=== PATIENT | female | born 1970 | race Caucasian/White ===

== ENCOUNTER 2018-12-20 06:09 | Day surgery (SDC) | payer OTHER, SELFPAY ==
--- NOTE | 2018-12-20 06:16 | HPE_ITS ---
Date of service: 12/20/18 Time of Service: 06:16 Assessment and Plan (1) Segmental colitis: Current visit: No Status: Acute P\\ Colonoscopy under sedation Risks, benefits and complications have been reviewed. Complications include but are not limited to bleeding, pain, perforation, missed small lesion/polyp, sore throat, aspiration and adverse reaction to the medications. Questions were entertained and answered to their satisfaction and they wished to proceed. No guarantees were given or implied. Qualifiers: Digestive disease complication type: without complication Qualified Code(s): K50.10 - Crohn's disease of large intestine without complications History of Present Illness Narrative: Mrs. Jasso is a pleasant 47-year-old female who starting in November developed left lower quadrant suprapubic abdominal pain. She was seen in the emergency department probably where she had a CT scan this showed a segment of sigmoid colon which was thickened and inflamed. It may not see any diverticuli so called that the diverticulitis versus segmental colitis. She was treated with antibiotics for quite a few weeks. She states that the antibiotics helped and the pain became dull. She continued to have flares and recently had another flare about 3 weeks ago. She has been on Augmentin since then. Again her pain is almost gone but she still feels some pressure especially in the suprapubic area. She did not have any other CAT scans since the one in November. She has never had a colonoscopy peer before. She does not develop diarrhea or constipation either prior or during these flares of pain. She tells me that she goes to the bathroom regularly once or twice a day they are. The bowel movements are soft. She denies any melena or hematochezia. She denies any weight loss. She feels that these flares are consistent with times of increased stress, decreased exercise, worse diet and less water intake. She does not have a family history of inflammatory bowel disease that she is aware of. She has never had a colonoscopy before. No changes in her health since I last saw her. [facility] Medical History Segmental colitis (Acute 12/25/17) Herpes (Acute 06/08/17) Edema (Acute 06/08/17) Diverticulitis (Acute 12/25/17) DUB (dysfunctional uterine bleeding) (Acute 06/08/17) Basal cell carcinoma of right shoulder (Acute) Surgical History section Dilation and curettage Excision, Lesion Hysterectomy w/ovary sparing Right shoulder FX repair Family History Mother Alcohol abuse FAMILY HISTORY Diabetes Alcohol abuse Essential hypertension Neoplasm Father Alcohol abuse Social History household members: spouse housing: house current occupational status: employed 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
[2018-12-20 06:19] VITALS: BP 113/42; PULSE 77; RESP 18; TEMP 36.2; O2SAT 100
--- NOTE | 2018-12-20 06:19 | W.COLOREPORT ---
Date of service: 12/20/18 Time of Service: : Colonoscopy Report Date of procedure: 12/20/18 Pre-op diagnosis general: Segmental colitis Post-op diagnosis procedure note: other (sigmoid diverticulosis) Procedure: Colonoscopy Surgeon: Natalie Menard Anesthesia proc note operative: MAC (Calin Gomes, WEB MARKETING ASSISTANT/ ASA 2) Estimated blood loss (mL): 0 Pathology: none sent Complications: None Disposition: same day Indications: Mrs. Jasso is a pleasant 48 year old with several episodes of LLQ pain. CT scan showed segmental colitis. No diverticula were noted. Risks, benefits and complications have been reviewed. Complications include but are not limited to bleeding, pain, perforation, missed small lesion/polyp, sore throat, aspiration and adverse reaction to the medications. Questions were entertained and answered to their satisfaction and they wished to proceed. No guarantees were given or implied. Prep: Miralax/Dulcolax Procedure Start Time: : Procedure End Time: :51 Retraction Time: 13 minutes Findings: mild sigmoid diverticulosis Procedure Description: After informed consent was obtained the patient was taken to the procedure room and placed in a left decubitous position. Monitors were applied and a time out was done. The patients name, date of , procedure, allergies to medications and metal in their body was reviewed. The patient was then sedated. Once sedated and comfortable a rectal exam was done. External exam was normal. Internal exam revealed a normal sphincter tone and no palpable masses. The scope was then introduced and retro-flexed. no internal hemorrhoids were identified. The scope was then advanced to the cecum without difficulty. The TI and appendiceal orifice were identified. The prep was good. The scope was then slowly retracted over 13 minutes back into the rectum. There were no polyps. There was mild diverticulosis of the sigmoid colon. The scope was removed and the patient was woken up and taken back to Same day surgery in stable condition. The patient tolerated the procedure well and there were no immediate complications. Follow up: The patient should follow up in 10 years unless they develop changes in bowel habits or other new gastrointestinal complaints.
--- NOTE | 2018-12-20 06:21 | W.PM.DSUDISC ---
Discharge Plan Disposition Patient Disposition: HOME Condition: Good Discharge Details Reason For Visit: Diverticulosis Attending Provider: Natalie Menard Primary Care Provider: Alaina Joseph Home Meds and New Rx's Prescriptions: Continued acyclovir 400 MG tablet 400 mg PO BID PRNQty: 60 RF: 12 Discontinued polyethylene glycol 3350 17 gram/dose Powder 3,350 g PO RF: 0 bisacodyl 5 mg Tablet 10 mg PO RF: 0 Discharge Instructions Instructions: Colonoscopy (DC), Diverticulosis (DC) Additional Instructions: Findings: mild diverticulosis Follow up: 10 years Please call if you develop: fevers >101.5 Nausea or Vomiting Abdominal pain that is not transient DAY SURGERY UNIT POST COLONOSCOPY INSTRUCTIONS 1. Because there will be medication in your system for the next 24 hours, you may feel a little sleepy. Your coordination will be affected. Therefore: a. Do not drive or operate dangerous equipment for 24 hours. b. Do not drink alcohol beverages for 24 hours (not even beer). c. Plan to go home and rest for the day. 2. Generally there are no restrictions on your activity after a day or so has gone by, but you may feel a bit fatigued for a few days. 3 After you arrive home you may have a light meal and return to a normal diet as you can tolerate it without feeling sick to your stomach. 4. After surgery, you may feel pain or discomfort. This should be only transient, but if it persists please contact your doctor. 5. If there are any questions regarding the findings of your procedure, please feel free to contact your doctor. 6. If you are unable to contact your doctor with a problem, contact the hospital at [phone]. 7. Continue all your regular medications unless directed otherwise. I understand the above instructions and have no questions. Signature of Patient or Responsible Adult Escort Date/Time Name of Responsible Adult Escort Signature of Nurse Date/Time Stand Alone Forms: Triston Evans (DSU) Activity:: Activity as Tolerated Diet:: high fiber diet Discharge Orders Discharge Orders: Discharge Order (Routine); Ordered 12/20/18 Ordered By: Natalie Menard DS: Diagnosis Discharge Diagnosis (1) Segmental colitis: Status: Acute
[2018-12-20] MEDS: Lactated Ringers 1,000 ML 80 ML IV (06:41)
[2018-12-20 08:52] VITALS: BP 107/60; PULSE 65; RESP 16; TEMP 36.1; O2SAT 100
== END 2018-12-20 08:50 | disposition home or self-care (01) ==
PROVIDERS: PCP Family Medicine; Visit Provider Surgery
PROC: 0DJD8ZZ Inspection of Lower Intestinal Tract, Via Natural or Artificial Opening Endoscopic (ICD-10-PCS; CPT 45378; principal; 2018-12-20 07:30)
DX: K50.10 Crohn's disease of large intestine without complications (principal); K57.30 Diverticulosis of large intestine without perforation or abscess without bleeding; Z12.11 Encounter for screening for malignant neoplasm of colon
CPT/HCPCS: G0105; NC; J3010

== ENCOUNTER 2019-06-21 13:46 | Outpatient (CLI) | payer SELFPAY ==
[2019-06-21 16:16] LABS: ESR 10 mm/hr (0-20)
[2019-06-22 09:33] LABS: Rheumatoid Factor 15 IU/mL (<12.5)
[2019-06-22 11:03] LABS: Lyme Ab w Rflx to Lyme Confirm Negative
[2019-06-22 13:56] LABS: ANA Interpretation Negative (NEGAT)
== END 2019-06-21 14:06 ==
PROVIDERS: PCP Family Medicine; Visit Provider Nurse Practitioner
DX: M25.50 Pain in unspecified joint (principal)
CPT/HCPCS: 36415; 85652; 86038; 86431; 86618

== ENCOUNTER 2019-06-28 13:26 | Outpatient (CLI) | payer SELFPAY ==
[2019-06-29 09:45] LABS: Cyclic Citrullinated Peptide <2.5 U/mL (<5.0)
== END 2019-06-28 13:46 ==
PROVIDERS: PCP Family Medicine; Visit Provider Nurse Practitioner
DX: M19.90 Unspecified osteoarthritis, unspecified site (principal); M25.50 Pain in unspecified joint
CPT/HCPCS: 36415; 86200

== ENCOUNTER 2020-04-12 10:34 | Outpatient (CLI) | payer BC, SELFPAY ==
[2020-04-13 14:38] LABS: COVID-19 RT-PCR Result NEGATIVE (Negative)
== END 2020-04-12 10:54 ==
PROVIDERS: PCP Family Medicine; Visit Provider Family Medicine
DX: R50.9 Fever, unspecified (principal)
CPT/HCPCS: U0003

== ENCOUNTER → 2021-02-26 01:06 | Outpatient (CLI) | payer OTHER, SELFPAY ==
--- NOTE | 2021-02-26 09:00 | DI.US_ITS ---
EXAM: US THYROID CLINICAL HISTORY: ? thyroid enlargement on right,MASS RT SIDE OF NECK, R22.1 TECHNIQUE: Ultrasound performed using standard protocol. COMPARISON: US BILATERAL BREAST US from 02/01/2014 FINDINGS: Thyroid ultrasound was performed according to the usual protocol. Right thyroid lobe measures 61 x 2 3 x 29 millimeters. Left thyroid lobe measures 63 x 20 x 20 millimeters. The isthmus is about 3 mil limeters in thickness. The thyroid has a multinodular appearance. There is dominant 25 x 23 x 20 millimeter in diameter nod ule of midpole of the right thyroid lobe, this is of mixed cystic and solid composition, is isoechoic to thyroid parenchyma, is taller than wide and has smooth margins. There are punctate echogenic foc i. The TI-RADS classification for this lesion would be TR 4, fine needle aspiration recommended for lesions 15 millimeters in diameter or larger. No additional suspicious lesion identified. IMPRESSION: Thyromegaly in a patient with multiple thyroid nodules. Dominant nodule on the right is TR 4 categor y, fine needle aspiration recommended for this lesion to evaluate the possibility of neoplasm.. DATA REPOSITORY:
--- NOTE | 2021-02-26 09:00 | DI.DEXA_ITS ---
EXAM: XR DEXA BONE DENSITY W/WO FERNANDO CLINICAL HISTORY: osteopenia,M85.80 TECHNIQUE: COMPARISON: No exams were available for comparison FINDINGS: DEXA scan was performed according to the usual protocol. Please see the accompanying data sheets. Findings for left hip scanning are T-score -1.0 left femoral neck T-score -1.1. Findings for lumbar spine scanning are T-score -0.5. Findings for left forearm scanning are T-score -0.2. IMPRESSION: Findings consistent with osteopenia according to the WHO criteria. Lateral vertebral scanogram shows no evidence of a vertebral compression fracture. RADIATION DOSE DELIVERED: Total DLP
--- NOTE | 2021-02-26 15:21 | DI.RAD_ITS ---
EXAM: XR ARTHRITIS SERIES CLINICAL HISTORY: Shayne hand and feet pain,M25.50 TECHNIQUE: COMPARISON: No exams were available for comparison FINDINGS: Two views of the right hand and wrist and two views of the left hand and wrist were obtained. No bon y or soft tissue abnormality seen. Cartilaginous joint spaces appear fairly well maintained througho ut. The carpus appears intact bilaterally. IMPRESSION: Negative examination of the hands and wrists. RADIATION DOSE DELIVERED: Total DLP
--- NOTE | 2021-02-26 15:45 | DI.MAMMO_ITS ---
EXAM: MAMMO SCREENING CLINICAL HISTORY: screening,Z12.39 TECHNIQUE: Mammograms were interpreted according to the usual protocol including computer analysis w Oink CAD system, tomosynthesis and C-view imaging. COMPARISON: 2011 through 2015 FINDINGS: The breasts are composed of heterogeneously dense fibroglandular densities, Breast Density category C . No suspicious masses or suspicious microcalcifications are seen. No skin thickening or abnormal axillary lymph nodes are seen. There has been no significant change from prior exams. IMPRESSION: BI-RADS Category 1, Negative mammogram. Yearly screening mammography is recommended. Breast Density Category C, heterogeneously Dense. The mammogram demonstrates the patient's breast tissue is dense. Dense breast tissue is very common a nd is not abnormal but dense breast tissue can make it harder to find cancer on a mammogram. Also, de nse breast tissue may increase breast cancer risk. This information about the result of the mammogram report was provided to the patient to raise their awareness. Use this report when you speak with the patient about their risks for breast cancer, which includes their family history. At that time, you may recommend additional screening tests (Ultrasound or MRI) as they might be useful based on their r isk. A negative radiographic report should not delay biopsy if a dominant or clinically suspicious mass is present. Up to ten percent of cancers are not identified on mammography. A negative report may reinforce clinical impression. Adenosis and dense breasts may obscure an underlying neoplasm. False positive reports average 6 to 10%.
== END ==
PROVIDERS: PCP Family Medicine; Visit Provider Family Medicine
DX: Z12.31 Encounter for screening mammogram for malignant neoplasm of breast (principal); M79.641 Pain in right hand; M79.642 Pain in left hand; M79.671 Pain in right foot; M79.672 Pain in left foot; R22.1 Localized swelling, mass and lump, neck; E04.2 Nontoxic multinodular goiter; E01.0 Iodine-deficiency related diffuse (endemic) goiter; M85.88 Other specified disorders of bone density and structure, other site
CPT/HCPCS: 77063; 77067; 77080; 73120; 76536

== ENCOUNTER 2021-05-28 19:38 | Emergency (ER) | payer OTHER, SELFPAY ==
[2021-05-28 19:43] VITALS: BP 133/85; PULSE 84; RESP 16; TEMP 36.4; O2SAT 100
--- NOTE | 2021-05-28 19:45 | DI.RAD_ITS ---
Exam(s) XR RIBS LT W PA LAT CHEST EXAM: XR RIBS LT W PA LAT CHEST CLINICAL HISTORY: pain left lateral 7-9 post fall TECHNIQUE: 2D digital imaging was performed. COMPARISON: No exams were available for comparison FINDINGS: MEDIASTINUM: Normal. HEART: Normal. PULMONARY VASCULATURE: Normal. LUNGS: Clear. PLEURAL SPACE: No pleural effusion or pneumothorax. BONE:Normal. LEFT RIBS: There is a cortical step-off at the superior aspect of the posterior left 9th rib suspicio us for fracture. OTHER FINDINGS:Normal. IMPRESSION: 1. No acute pulmonary findings. 2. Findings suspicious for a fracture involving the posterior left 9th rib. 3. Findings were discussed with Dr. Vaz in the emergency department on 05/29/2021. DATA REPOSITORY: RADIATION DOSE DELIVERED:
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
[2021-05-28] MEDS: Acetaminophen 500 MG TAB 1000 MG PO (20:23)
[2021-05-28] MEDS: Lidocaine 5% Patch 1 PATCH TP (20:24)
--- NOTE | 2021-05-28 21:29 | NUR.NOTE ---
deep breathing exercised reviewed. ambulated to exit with steady gait
--- NOTE | 2021-05-28 21:30 | DI.VRAD_ITS ---
PROCEDURE INFORMATION: Exam: XR Left Ribs Exam date and time: 05/28/2021 8:00 PM Age: 50 years old Clinical indication: Injury or trauma; Blunt trauma (contusions or hematomas); Rib area, left side; Injury date: 05/28/21; Injury details: Left lateral rib pain post fall, line 7-9 TECHNIQUE: Imaging protocol: XR Left ribs. Views: 2 views. COMPARISON: No relevant prior studies available. FINDINGS: There are no fractures observed in the left ribs. Intercostal spaces are normal. Negative for chest wall emphysema. Prominent costochondral calcifications are present. IMPRESSION: No evidence of left rib fracture. PROCEDURE INFORMATION: Exam: XR Chest Exam date and time: 05/28/2021 8:00 PM Age: 50 years old Clinical indication: Injury or trauma; Blunt trauma (contusions or hematomas); Rib area, left side; Injury date: 05/28/21; Injury details: Left lateral rib pain post fall, line 7-9 TECHNIQUE: Imaging protocol: XR of the chest. Views: 2 views. COMPARISON: No relevant prior studies available. FINDINGS: Lungs: Unremarkable. No consolidation. Pleural spaces: Unremarkable. No pleural effusion. No pneumothorax. Heart/Mediastinum: Unremarkable. No cardiomegaly. Bones/joints: Unremarkable. IMPRESSION: No acute findings. Dictated and Authenticated by: Yaw Yun MD. Ordering:KASSIE Swesnon MD
--- NOTE | 2021-05-29 15:31 | W.ED.FU ---
Follow Up Plan: Rib fracture noted on x-rays per radiology, not noted by [facility]. I discussed this finding with the patient over the phone, who stated that she was told by PA who saw saw her during her ED visit that she did have a rib fracture. I had a discussion with Patient regarding home care, and importance of outpatient follow-up. Pt verbalizes understanding of the plan and is amenable. All questions were answered.
== END 2021-05-28 21:30 | disposition home or self-care (01) ==
PROVIDERS: Emergency Provider Physician Assistant; PCP Family Medicine
DX: S22.32XA Fracture of one rib, left side, initial encounter for closed fracture (principal); W01.0XXA Fall on same level from slipping, tripping and stumbling without subsequent striking against object, initial encounter; W54.8XXA Other contact with dog, initial encounter
CPT/HCPCS: 99283; 71046; 71100; 99284

== ENCOUNTER 2021-08-17 15:27 | Outpatient (REF) | payer OTHER, SELFPAY | END 2021-08-17 15:28 | disposition home or self-care (01) | LOC: NCHCN 15:27 | PROVIDERS: PCP Family Medicine; Visit Provider Physician Assistant | DX: N39.0 Urinary tract infection, site not specified (principal) | CPT/HCPCS: 87077; 87086; 87186 ==

== ENCOUNTER → 2022-05-12 01:34 | Outpatient (CLI) | payer OTHER, SELFPAY | PROVIDERS: PCP Family Medicine; Visit Provider Otolaryngology ==

== ENCOUNTER 2023-03-24 01:42 | Outpatient (CLI) | payer OTHER, SELFPAY ==
--- NOTE | 2023-03-24 07:30 | DI.US_ITS ---
Exam(s) US NEEDLE LOCAL OTHER WO RAD EXAM: US NEEDLE LOCAL OTHER WO RAD CLINICAL HISTORY: Left thyroid nodule, TR 4, ultrasound guided bx,e04.2. COMPARISON: US US THYROID from 02/23/2023 TECHNIQUE: Fluoroscopy was provided during ultrasound-guided FNA of dominant TR4 solid nodule in th e left lobe of thyroid gland. FINDINGS: Obtained images and cine acquisitions reveal satisfactory placement of the FNA needle into the nodule forr sample acquisition IMPRESSION: Successful Ultrasound-guided Localization. DATA REPOSITORY:
--- NOTE | 2023-03-24 11:30 | PAPNONF_PTH ---
PATIENT: Angelina Tong LOC: [facility] U#:[id number] AGE/SX: 52/F ROOM: RE03/24/[address]: Rod Carreno MD : 1970 BED: DIS: 03/24/2023 SPEC #: [id number] RECD: 03/24/23 12:54 STATUS: SANDRA REKev #: [id number] RADHA: 03/24/23 11:[address]: Rod Carreno DEPT: [facility] Cytology RECD BY: Leela Brooke ENTERED: 03/24/23 12:55 SP TYPE: KATHI JERNIGAN DR: Alaina Joseph MD, DC Tissues: 1 - BODY FLUID CYTO-FINE NEEDLE ASPIRATE-[facility] Procedures: BODY FLUID CYTO-FINE NEEDLE ASPIRATE-[facility] Comments: [id number] (PATH FNA CONSULT) (REFRIGERATED)
--- NOTE | 2023-03-24 11:38 | OPPNE_ITS ---
Date of service: 03/24/23 Time of Service: 11:38 Procedure Note Date of procedure: 03/24/23 Procedure: Ultrasound-guided FNA, left thyroid nodule, pathology present Surgeon/Proceduralist/Physician: Rod Carreno Procedure Diagnosis: Left TR 4 thyroid nodule 3.7 cm diameter Procedure Indications: The patient has a left-sided TR 4 thyroid nodule meeting criteria for biopsy. Options were explained to the patient regarding further management. She elected to undergo the above procedure. Consent was filled out and signed prior to procedure. Procedure Description: The patient was positioned in a supine position with her head slightly extended. She was prepped and draped in appropriate fashion. Ultrasound was used to localize the left-sided thyroid nodule of concern and then 2 passes were made into the thyroid nodule using ultrasound to confirm the location of the needle. Pathology confirmed adequate cellularity. 2 additional passes were made for possible Afirma testing using the same guidance. Bleeding was minimal and self- limited. Sterile dressing was applied. The patient was able to ambulate afterwards without difficulty. Her vital signs remained stable. She will call if she does not hear from me within 1 week with regard to pathology results. She will remove the bandage tonight and not replace it. She will call with any signs of infection or concerns.
== END 2023-03-24 02:02 ==
LOC: DI 01:43
PROVIDERS: PCP Family Medicine; Visit Provider Otolaryngology
DX: E04.2 Nontoxic multinodular goiter (principal)
CPT/HCPCS: 10005; 76942; 88104

== ENCOUNTER 2024-01-28 10:38 | Outpatient (REF) | payer BC, SELFPAY ==
[2024-01-28 13:54] LABS: Bilirubin Negative (Negative); Blood Trace-intact (Negative); Clarity Cloudy (Clear); Glucose 100 mg/dL (Negative); Ketones Negative (Negative); Leukocyte Esterase Small (Negative); Nitrite Positive (Negative); pH 6.5 (5-8)
[2024-01-28 14:21] LABS: C & S Indicated? Yes; WBC >50 HPF (0-5)
== END 2024-01-28 10:39 | disposition home or self-care (01) ==
LOC: LBN 10:38
PROVIDERS: PCP Family Medicine; Referring Provider Family Medicine; Visit Provider Family Medicine
DX: R30.0 Dysuria (principal); N39.0 Urinary tract infection, site not specified
CPT/HCPCS: 87077; 81003; 81015; 87086; 87186

== ENCOUNTER 2024-02-18 10:40 | Outpatient (REF) | payer BC, SELFPAY ==
[2024-02-18 21:39] LABS: Bilirubin Negative (Negative); Blood Negative (Negative); Clarity Clear (Clear); Glucose Negative (Negative); Ketones Negative (Negative); Leukocyte Esterase Negative (Negative); Nitrite Negative (Negative); Urobilinogen 0.2 mg/dL (Up to 0.2)
== END 2024-02-19 10:41 | disposition home or self-care (01) ==
LOC: LBN 10:40
PROVIDERS: PCP Family Medicine; Visit Provider Nurse Practitioner Family
DX: B96.29 Other Escherichia coli [E. coli] as the cause of diseases classified elsewhere (principal); R30.0 Dysuria
CPT/HCPCS: 81003

== ENCOUNTER → 2024-03-07 03:24 | Outpatient (CLI) | payer BC, SELFPAY ==
--- NOTE | 2024-03-07 07:45 | DI.MAMMO_ITS ---
Exam(s) MAMMO SCREENING EXAM: MAMMO SCREENING CLINICAL HISTORY: screening,Z12.39 TECHNIQUE: Bilateral full field digital CC and MLO mammographic images were obtained with 3D tomosyn thesis and utilizing computer aided detection (CAD). COMPARISON: Available for comparison. FINDINGS: Masses/Architectural Distortion: None seen. Microcalcifications: No suspicious pleomorphic-type are seen. Skin Thickening/Nipple Retraction: None. IMPRESSION: 1. No significant interval change with no specific features of malignancy noted. 2. Unless there is more urgent need, screening mammography is recommended, as per [employer] guidelines. BI-RADS Category 1 - Negative Breast Density - Category B - Scattered areas of fibroglandular density Breast density category C or D implies that the patient has dense breast tissue. Dense breast tissue is very common and is not abnormal but dense breast tissue can make it harder to find cancer on a ma mmogram. Also, dense breast tissue may increase their breast cancer risk. This information about the result of the mammogram report was provided to the patient to raise their awareness. Use this report when you speak with the patient about their risks for breast cancer, which includes their family hist ory. At that time, you may recommend for more screening tests (Ultrasound or MRI) as they might be us eful based on their risk. A negative radiographic report should not delay biopsy if a dominant or clinically suspicious mass is present. Up to ten percent of cancers are not identified on mammography. A negative report may reinforce clinical impression. Adenosis and dense breasts may obscure an underlying neoplasm. False positive reports average 6 to 10%. Patient will receive a letter notifying them of these results.
== END ==
PROVIDERS: PCP Family Medicine; Visit Provider Family Medicine
DX: Z12.31 Encounter for screening mammogram for malignant neoplasm of breast (principal)
CPT/HCPCS: 77063; 77067

== ENCOUNTER 2025-03-17 11:54 | Outpatient (CLI) | payer BC, SELFPAY ==
[2025-03-17 11:55] LABS: Abs Immature Grans 0.04 10^3/uL (0.0-0.06); Absolute Basophil Count 0.08 10^3/uL (0.0-0.2); Absolute Eosinophil Count 0.09 10^3/uL (0.0-0.7); Absolute Lymphocyte Count 1.71 10^3/uL (1.2-3.4); Absolute Monocyte Count 0.45 10^3/uL (0.1-0.8); Absolute Neutrophil Count 7.11 10^3/uL (1.2-6.7); Basophils % 0.8 %; Eosinophils % 0.9 %; HGB 12.4 g/dL (11.2-15.7); Immature Grans % 0.4 %; MCH 30.3 pg (27.0-33.0); MCHC 31.8 % (32.0-36.0); MCV 95 fL (80-95); MPV 9.9 fL (8.0-11.0); Monocytes % 4.7 %; Neutrophils % 75.2 %; Platelet Count 239 10^3/uL (130-400); RBC 4.09 10^6/uL (3.93-5.22); RDW 12.2 % (11.7-14.6); RDW-SD 42.8 fL; WBC 9.48 10^3/uL (4.4-10.8)
== END 2025-03-17 11:55 | disposition home or self-care (01) ==
LOC: LBO 11:55
PROVIDERS: PCP Family Medicine; Visit Provider Family Medicine
DX: D72.829 Elevated white blood cell count, unspecified (principal)
CPT/HCPCS: 36415; 85025